=== PATIENT | female | born 1950 | race Caucasian/White ===

== ENCOUNTER 2020-07-24 10:09 | Emergency (ER) | payer MEDICARE, OTHER, SELFPAY ==
--- NOTE | 2020-07-24 10:03 | DI.RAD.S_ITS ---
PROCEDURE: XR CHEST 1V INDICATIONS: palpitations TECHNIQUE: One view of the chest was acquired. COMPARISON: None. FINDINGS: Surgical changes and devices: None. Lungs and pleura: Lungs are clear. No pleural effusions or pneumothorax. Mediastinum: Mediastinal contours appear normal. Heart size is normal. Bones and chest wall: No suspicious bony lesions. Age-appropriate bony degenerative changes are seen. Moderate levoconvex scoliosis is seen. Overlying soft tissues appear unremarkable. IMPRESSION: No acute cardiopulmonary process is seen. Scoliosis. Dictated by: Eric Arriaza M.D. on 07/24/2020 at 9:39 Approved by: Eric Arriaza M.D. on 07/24/2020 at 9:39
[2020-07-24 10:18] VITALS: BP 159/84; PULSE 87; RESP 20; TEMP 37.3; O2SAT 98; BMI 25.2
[2020-07-24 10:54] LABS: Add Manual Diff / Slide Review NO; Basophils Absolute Auto 0 /uL (0-100); Basophils Percent Auto 0.7 % (0-2); Eosinophils Absolute Auto 200 /uL (0-450); Eosinophils Percent Auto 4.4 % (2-4); Hematocrit 39.3 % (36-46); Lymphocytes Absolute Auto 900 /uL (1100-4500); Lymphocytes Percent Auto 18.2 % (25-40); Monocytes Absolute Auto 500 /uL (0-900); Monocytes Percent Auto 9.5 % (3-14); Neutrophils Absolute Auto 3200 /uL (1500-7000); Neutrophils Percent Auto 67.2 % (50-75); Platelet Count 266 X10^3/uL (150-400); Red Blood Cell Count 4.05 X10^6/uL (4.0-5.2); Red Cell Distribution Width 13.1 % (11.6-14.8); White Blood Cell Count 4.8 X10^3/uL (4.5-11.0)
--- NOTE | 2020-07-24 10:55 | ED.ARRPALP ---
HPI - Arrhythmia/Palpitations <JANICE Mustafa - Last Filed: 07/24/20 14:17> General Chief Complaint: Arrhythmia/Palpitations Stated Complaint: Palpatations Time Seen by Provider: 07/24/20 10:27 Source: patient Mode of arrival: EMS Limitations: no limitations History of Present Illness HPI narrative: The patient is a 69-year-old female nonsmoker with history of an arrhythmia as well as hypothyroid who presents with a chief complaint of palpitations. She states that she has been seen by her primary care provider, GORGE nayak regarding this. She states that several years ago she had a Holter monitor in's our [employer] she denies any chest pain or shortness of breath. She states that last night she had severe palpitations here and had a hard time sleeping because of her palpitations. She states that they, ago, and have different patterns. Sometimes she feels a fluttering in her chest. Sometimes she feels a ?blip in her chest. She denies any chest pain or shortness of breath. She denies any swelling of her extremities. She states that she has not had anything to eat or drink so far today. She has not seen her primary care provider approximately a year and a half because she is ?healthy. She does state that she has been diagnosed with an arrhythmia before, she does not have known atrial fibrillation. Related Data Home Medications Medication Instructions Recorded Confirmed levothyroxine 75 mcg tablet 75 mcg PO DAILY 11/04/17 12/02/17 Previous Rx's Medication Instructions Recorded estradiol 0.5 gram VAGINAL 2XW #1 tube 07/09/18 clobetasol 0.05 % topical cream See Rx Instructions TOP .COMPLEX 09/17/18 #30 gram Allergies Allergy/AdvReac Type Severity Reaction Status Date / Time doxycycline [DOXYCYCLINE] Allergy Unknown Unverified 12/02/17 14:22 Penicillins Allergy Rash Verified 07/24/20 10:23 SURGICAL TAPE Allergy Unknown Uncoded 12/02/17 14:22 Review of Systems <JANICE Mustafa - Last Filed: 07/24/20 14:17> Review of Systems Narrative: GENERAL: Denies chills, fatigue, malaise, fever, sweats. HEENT: Denies sinus pain, ear pain, sore throat, difficulty swallowing, dizziness. RESPIRATORY: Denies dyspnea, cough, wheezing, hemoptysis, sputum. CARDIOVASCULAR: See HPI GASTROINTESTINAL: Denies nausea, vomiting, abdominal pain, diarrhea, constipation, melena. : Denies dysuria, frequency, incontinence, hematuria, urinary retention. MUSCULOSKELETAL: denies weakness, joint pain, or bony pain SKIN: Denies rash, skin lesions, or other NEUROLOGIC: Denies weakness, headache, numbness, change in speech, confusion, seizures, incoordination. PSYCHIATRIC: No concerning psychosocial issues. 12 point review of systems is negative except for those stated above Patient History <JANICE Mustafa - Last Filed: 07/24/20 14:17> Medical History Hypothyroidism Surgical History History of third molar tooth extraction (1978) History of tonsillectomy (1957) Hx of removal of cyst Social History Smoking Status: Never smoker Smoking Status: Never smoker alcohol intake frequency: 0-2 drinks per day Substance Use Type: does not use Exam <JANICE Mustafa - Last Filed: 07/24/20 14:17> Narrative Exam Narrative: GENERAL: This is a well-nourished, well-developed patient, in no acute distress HEAD: Atraumatic. Normocephalic. No temporal or scalp tenderness. EYES: Pupils equal round and reactive. Extraocular motions intact. No scleral icterus. No injection or drainage. ENT: Nose without bleeding, purulent drainage or septal hematoma. Throat without erythema, tonsillar hypertrophy or exudate. Uvula midline. Airway patent. Dry mucous membranes NECK: Trachea midline. No JVD or lymphadenopathy. Supple, nontender, no meningeal signs. CARDIOVASCULAR: Regular rate and rhythm RESPIRATORY: Clear to auscultation. Breath sounds equal bilaterally. No wheezes, rales, or rhonchi. No cough. No increased respiratory effort. No accessory muscle use. GASTROINTESTINAL: Abdomen soft, non-tender, nondistended. No hepato-splenomegaly, or palpable masses. No guarding. EXTREMITIES: No clubbing, cyanosis, or edema. No joint tenderness, effusion, or edema noted. BACK: Nontender without deformity or crepitance. No flank tenderness. NEURO: AOx3. SKIN: No rash or erythema Initial Vital Signs Initial Vital Signs: Vital Signs Temperature 99.1 F 07/24/20 10:18 Pulse Rate 87 07/24/20 10:18 Respiratory Rate 20 07/24/20 10:18 Blood Pressure 159/84 H 07/24/20 10:18 Pulse Oximetry 98 07/24/20 10:18 <Doron Alexander DO - Last Filed: 07/24/20 15:09> Initial Vital Signs Initial Vital Signs: Vital Signs Temperature 99.1 F 07/24/20 10:18 Pulse Rate 87 07/24/20 10:18 Respiratory Rate 20 07/24/20 10:18 Blood Pressure 159/84 H 07/24/20 10:18 Pulse Oximetry 98 07/24/20 10:18 Scores <JANICE Mustafa - Last Filed: 07/24/20 14:17> GCS [place] coma scale eye opening: Spontaneous Rudi coma scale verbal response: Orientated [place] coma scale motor response: Obey commands Rudi coma scale total score: 15 Course <JANICE Mustafa - Last Filed: 07/24/20 14:17> Orders Ordered: ED Orders 07/24/20 10:03 XR chest 1V Stat EKG-12 Lead Stat 07/24/20 10:40 Basic Metabolic Panel Stat Complete Blood Count AUTO DIFF Stat Magnesium Stat NT-proBNP (BNP-Adult 18+) Stat TSH [Thyroid Stimulating Hormone] Stat Troponin & CK Cardiac Panel Stat Discontinued Medications Sodium Chloride (Normal Saline 0.9%) 1,000 mls @ 1,000 mls/hr IV BOLUS ONE Stop: 07/24/20 11:53 Last Admin: 07/24/20 11:20 Dose: 1,000 mls/hr Documented by: GERA Vital Signs Vital signs: Vital Signs - 8 hr 07/24/20 10:18 07/24/20 11:00 Temperature 99.1 F Pulse Rate 87 Respiratory Rate 20 Blood Pressure 159/84 H 126/74 Pulse Oximetry 98 <DO Marsha Goode Last Filed: 07/24/20 15:09> Orders Ordered: ED Orders 07/24/20 10:03 XR chest 1V Stat EKG-12 Lead Stat 07/24/20 10:40 Basic Metabolic Panel Stat Complete Blood Count AUTO DIFF Stat Magnesium Stat NT-proBNP (BNP-Adult 18+) Stat TSH [Thyroid Stimulating Hormone] Stat Troponin & CK Cardiac Panel Stat Discontinued Medications Sodium Chloride (Normal Saline 0.9%) 1,000 mls @ 1,000 mls/hr IV BOLUS ONE Stop: 07/24/20 11:53 Last Admin: 07/24/20 11:20 Dose: 1,000 mls/hr Documented by: GERA Vital Signs Vital signs: Vital Signs - 8 hr 07/24/20 10:18 07/24/20 11:00 Temperature 99.1 F Pulse Rate 87 Respiratory Rate 20 Blood Pressure 159/84 H 126/74 Pulse Oximetry 98 MDM - Arrhythmia/Palpitations <JANICE Mustafa - Last Filed: 07/24/20 14:17> Differential Diagnosis Differential diagnosis: Likely palpitations and anxiety Lab Data Attestation: I reviewed the patient's lab results. Result diagrams: 07/24/20 10:40 07/24/20 10:40 Labs: Lab Results 07/24/20 07/24/20 07/24/20 Range/Units 10:40 10:40 10:40 WBC 4.8 (4.5-11.0) X10^3/uL RBC 4.05 (4.0-5.2) X10^6/uL Hgb 13.0 (12.0-16.0) g/dL Hct 39.3 (36-46) % MCV 97.0 (80-100) fL MCH 32.0 (26-34) PG MCHC 33.0 (30-36) % RDW 13.1 (11.6-14.8) % Plt Count 266 (150-400) X10^3/uL Neut % (Auto) 67.2 (50-75) % Lymph % (Auto) 18.2 L (25-40) % Sullivan % (Auto) 9.5 (3-14) % Eos % (Auto) 4.4 H (2-4) % Baso % (Auto) 0.7 (0-2) % Neut # (Auto) 3200 (5770-0275) /uL Lymph # (Auto) 900 L (2357-7397) /uL Sullivan # (Auto) 500 (0-900) /uL Eos # (Auto) 200 (0-450) /uL Baso # (Auto) 0 (0-100) /uL Sodium 138 (137-145) mmol/L Potassium 4.3 (3.4-5.1) mmol/L Chloride 105 (98-107) mmol/L Carbon Dioxide 32 (22-32) mmol/L BUN 29 H (7-17) mg/dL Creatinine 0.91 (0.52-1.04) mg/dL Estimated GFR > 60.0 (>60) mL/min BUN/Creatinine Ratio 31.9 H (6-22) Glucose 111 H (80-110) mg/dL Calcium 9.0 (8.4-10.2) mg/dL Magnesium (1.6-2.3) mg/dL Total Creatine Kinase (30-135) U/L CK-MB (CK-2) CK-MB (CK-2) Rel Index Troponin I (0.01-0.034) ng/mL NT-Pro-B Natriuret Pep (<125) pg/mL TSH 0.895 (0.47-4.68) uIU/mL 07/24/20 Range/Units 10:40 WBC (4.5-11.0) X10^3/uL RBC (4.0-5.2) X10^6/uL Hgb (12.0-16.0) g/dL Hct (36-46) % MCV (80-100) fL MCH (26-34) PG MCHC (30-36) % RDW (11.6-14.8) % Plt Count (150-400) X10^3/uL Neut % (Auto) (50-75) % Lymph % (Auto) (25-40) % Sullivan % (Auto) (3-14) % Eos % (Auto) (2-4) % Baso % (Auto) (0-2) % Neut # (Auto) (4949-3339) /uL Lymph # (Auto) (2211-8192) /uL Sullivan # (Auto) (0-900) /uL Eos # (Auto) (0-450) /uL Baso # (Auto) (0-100) /uL Sodium (137-145) mmol/L Potassium (3.4-5.1) mmol/L Chloride (98-107) mmol/L Carbon Dioxide (22-32) mmol/L BUN (7-17) mg/dL Creatinine (0.52-1.04) mg/dL Estimated GFR (>60) mL/min BUN/Creatinine Ratio (6-22) Glucose (80-110) mg/dL Calcium (8.4-10.2) mg/dL Magnesium 2.1 (1.6-2.3) mg/dL Total Creatine Kinase 76 (30-135) U/L CK-MB (CK-2) TNP CK-MB (CK-2) Rel Index TNP Troponin I < 0.012 (0.01-0.034) ng/mL NT-Pro-B Natriuret Pep 117 (<125) pg/mL TSH (0.47-4.68) uIU/mL Imaging Data Chest x-ray: Radiologist's Impresson: No acute cardiopulmonary process is seen. Scoliosis. read by Sofiya HOWELL ECG Data Attestation: I personally reviewed and interpreted this ECG as follows: Interpretation: Normal sinus rhythm. Ventricular 84. P.r. interval 136. QRS 84.Viewed by Dr Alexander [facility] Narrative Medical decision making narrative: The patient is a 69-year-old female who presents with a chief complaint. Of palpitationsall night EKG shows normal sinus rhythm. Labs within normal limits, negative troponin, normal potassium mag sodium. She remains with no significant ectopy on telemetry during her multiple our emergency department stay. I encouraged follow-up with primary care provider in the next few days. She may benefit from another Holter monitor or ZIO patch. I discussed at length strict ER return precautions for any acute chest pain or shortness of breath. Discussed avoiding caffeine, pushing fluids and rest. Patient has no questions or concerns upon discharge and states understanding return precautions as well as follow-up care. <Doron Alexander, DO - Last Filed: 07/24/20 15:09> Lab Data Labs: Lab Results 07/24/20 07/24/20 07/24/20 Range/Units 10:40 10:40 10:40 WBC 4.8 (4.5-11.0) X10^3/uL RBC 4.05 (4.0-5.2) X10^6/uL Hgb 13.0 (12.0-16.0) g/dL Hct 39.3 (36-46) % MCV 97.0 (80-100) fL MCH 32.0 (26-34) PG MCHC 33.0 (30-36) % RDW 13.1 (11.6-14.8) % Plt Count 266 (150-400) X10^3/uL Neut % (Auto) 67.2 (50-75) % Lymph % (Auto) 18.2 L (25-40) % Sullivan % (Auto) 9.5 (3-14) % Eos % (Auto) 4.4 H (2-4) % Baso % (Auto) 0.7 (0-2) % Neut # (Auto) 3200 (9079-7463) /uL Lymph # (Auto) 900 L (7462-8127) /uL Sullivan # (Auto) 500 (0-900) /uL Eos # (Auto) 200 (0-450) /uL Baso # (Auto) 0 (0-100) /uL Sodium 138 (137-145) mmol/L Potassium 4.3 (3.4-5.1) mmol/L Chloride 105 (98-107) mmol/L Carbon Dioxide 32 (22-32) mmol/L BUN 29 H (7-17) mg/dL Creatinine 0.91 (0.52-1.04) mg/dL Estimated GFR > 60.0 (>60) mL/min BUN/Creatinine Ratio 31.9 H (6-22) Glucose 111 H (80-110) mg/dL Calcium 9.0 (8.4-10.2) mg/dL Magnesium (1.6-2.3) mg/dL Total Creatine Kinase (30-135) U/L CK-MB (CK-2) CK-MB (CK-2) Rel Index Troponin I (0.01-0.034) ng/mL NT-Pro-B Natriuret Pep (<125) pg/mL TSH 0.895 (0.47-4.68) uIU/mL 07/24/20 Range/Units 10:40 WBC (4.5-11.0) X10^3/uL RBC (4.0-5.2) X10^6/uL Hgb (12.0-16.0) g/dL Hct (36-46) % MCV (80-100) fL MCH (26-34) PG MCHC (30-36) % RDW (11.6-14.8) % Plt Count (150-400) X10^3/uL Neut % (Auto) (50-75) % Lymph % (Auto) (25-40) % Sullivan % (Auto) (3-14) % Eos % (Auto) (2-4) % Baso % (Auto) (0-2) % Neut # (Auto) (1589-9177) /uL Lymph # (Auto) (3542-6429) /uL Sullivan # (Auto) (0-900) /uL Eos # (Auto) (0-450) /uL Baso # (Auto) (0-100) /uL Sodium (137-145) mmol/L Potassium (3.4-5.1) mmol/L Chloride (98-107) mmol/L Carbon Dioxide (22-32) mmol/L BUN (7-17) mg/dL Creatinine (0.52-1.04) mg/dL Estimated GFR (>60) mL/min BUN/Creatinine Ratio (6-22) Glucose (80-110) mg/dL Calcium (8.4-10.2) mg/dL Magnesium 2.1 (1.6-2.3) mg/dL Total Creatine Kinase 76 (30-135) U/L CK-MB (CK-2) TNP CK-MB (CK-2) Rel Index TNP Troponin I < 0.012 (0.01-0.034) ng/mL NT-Pro-B Natriuret Pep 117 (<125) pg/mL TSH (0.47-4.68) uIU/mL Discharge Plan Departure Patient Disposition: Home Clinical Impression: Palpitations Instructions: DI for Arrhythmias, DI for Palpitations Activity Restrictions/Additional Instructions: Thank you for trusting us with your care today. As discussed, your heart monitor here has been reassuring. Your lab work resulted very well. Please rest and push fluids over the next few days. Please follow-up with primary care provider in the next few days. Please come back to the emergency department for any acute concerns. This includes chest pain, shortness of breath concern of heart attack or stroke. Prescriptions: No Action estradiol [Estrace] 0.01 % (0.1 mg/gram) cream 0.5 gram Vaginal 2XW Qty: 1 RF: 3 clobetasol 0.05 % cream See Rx Instructions TOP .COMPLEX Qty: 30 RF: 0 levothyroxine [Synthroid] 75 mcg tablet 75 mcg PO DAILY RF: 0 Referrals: Susanna Nayak PA-C [Primary Care Provider] - <Doron Alexander DO - Last Filed: 07/24/20 15:09> Cosign ED Attending Cosignature Attestation: Dr Alexander Co-Sign Statement: I was available for consultation during this patient's emergency department visit. This chart is signed by myself for administrative purposes only. I did not have direct contact with this patient during this visit. They were seen independently by the APC.
[2020-07-24 11:00] VITALS: BP 126/74
[2020-07-24 11:11] LABS: Creatine Kinase 76 U/L (30-135); Magnesium 2.1 mg/dL (1.6-2.3)
[2020-07-24 11:16] LABS: BUN Creatinine Ratio 31.9 (6-22); Blood Urea Nitrogen 29 mg/dL (7-17); Carbon Dioxide 32 mmol/L (22-32); Chloride 105 mmol/L (98-107); Estimated Glomerular Filt Rate > 60.0 mL/min (>60); Glucose 111 mg/dL (80-110); HEMOLYSIS < 15 (0-50); Potassium 4.3 mmol/L (3.4-5.1); Sodium 138 mmol/L (137-145)
[2020-07-24] MEDS: SODIUM CHLORIDE 0.9% 1,000 ML 1000 ML IV (11:20)
[2020-07-24 11:23] LABS: NT-proBNP (BNP-Adult 18+) 117 pg/mL (<125); Troponin I < 0.012 ng/mL (0.01-0.034)
[2020-07-24 11:41] LABS: Thyroid Stimulating Hormone 0.895 uIU/mL (0.47-4.68)
--- NOTE | 2020-08-05 13:12 | PC.NURSE ---
Late entry, one liter normal saline bolus completed. Infused for one hour.
== END 2020-07-24 12:44 | disposition home or self-care (01) ==
PROVIDERS: Emergency Medicine; Emergency Provider Nurse Practitioner Family; Family Provider Physician Assistant Medical; PCP Physician Assistant
DX: R00.2 Palpitations (principal); E03.9 Hypothyroidism, unspecified
CPT/HCPCS: 36415; 71045; 80048; 82550; 83735; 83880; 84443; 84484; 85025; 93005; 96360; 99283; 99284